=== PATIENT | male | born 1945 | race Hispanic/Latino ===

== ENCOUNTER 2016-10-25 10:46 | Inpatient (IN) | payer OTHER, MEDICARE ==
--- NOTE | 2016-10-25 11:00 | C.PDOC ---
History Of Present Illness 71-year-old male, presents to the emergency department with complaints of dysfunctional german catheter. Patient states he was seen by Dr Rosenberg in office yesterday, where he had an ultrasound that showed "fluid backing up into the kidneys." Patient had a german catheter placed, which was draining well until this morning, patient states "nothing came out, I was milking the bag for urine." Initially patient noted bladder discomfort, that has now resolved. Pt had a fever (T-Max 101) yesterday. No hematuria, nausea/vomiting, or any other associated symptoms. No other complaints at this time Chief Complaint (Nursing): Male Genitourinary History Per: Patient History/Exam Limitations: no limitations Onset/Duration Of Symptoms: Hrs Current Symptoms Are (Timing): Still Present Severity: Moderate Past Medical History Reviewed: Historical Data, Nursing Documentation, Vital Signs Vital Signs: Last Vital Signs Temp 98.3 F 10/27/16 16:00 Pulse 67 10/27/16 16:00 Resp 20 10/27/16 16:00 BP 134/78 10/27/16 16:00 Pulse Ox 99 10/27/16 16:00 Family History: States: Unknown Family Hx Review Of Systems Except As Marked, All Systems Reviewed And Found Negative. Constitutional: Negative for: Fever, Chills Respiratory: Negative for: Shortness of Breath Gastrointestinal: Positive for: Abdominal Pain. Negative for: Nausea, Vomiting Musculoskeletal: Negative for: Back Pain Skin: Negative for: Rash Neurological: Negative for: Weakness, Numbness, Headache, Dizziness Physical Exam - Physical Exam Appears: Non-toxic, No Acute Distress Skin: Warm, Dry, No Rash Head: Atraumatic, Normacephalic Eye(s): bilateral: Normal Inspection, PERRL, EOMI Nose: Normal Oral Mucosa: Moist Lips: Normal Appearing Neck: Normal ROM Cardiovascular: Rhythm Regular Respiratory: Normal Breath Sounds, No Accessory Muscle Use Gastrointestinal/Abdominal: Soft, No Tenderness Male Genital: Other (GERMAN IN PLACE, DRAINING URINE.) Extremity: Normal ROM Neurological/Psych: Oriented x3, Normal Speech ED Course And Treatment - Laboratory Results Result Diagrams: 10/25/16 11:37 10/25/16 11:37 - CT Scan/US A/P Other Rad Studies (CT/US): Radiology Report Reviewed (L SIDED HYDRONEPH; HYDROURETER; NO OBSTRUCT; BLADDER WALL IRREG; BPH) Progress - Data Reviewed Data Reviewed: Lab, Diagnostic imaging, Old records - Continuity of Care Discussed patient case with:: Patient Discussed pt. case with budget consultant/specialty: Urology ED OBSERVATION Date of observation admission: 10/25/16 Time of observation admission: 11:15 - Observation admission statement Patient is being placed in observation because:: URINARY RETENTION; FEVER - Goals of Observation Goals of observation are:: NEG SEPSIS, ACUTE FINDINGS - Progress Note Progress Note: 10/25/16 11:21 D/W DR Aramis ROSENBERG REQUESTS CT AWARE OF ER FINDINGS AND PLAN 10/25/16 14:26 D/W DR ROSENBERG AWARE OF ER FINDINGS WILL ADMIT Disposition Counseled Patient/Family Regarding: Studies Performed, Diagnosis - Disposition Disposition: HOSPITALIZED Disposition Time: 14:27 Condition: STABLE - POA Present On Arrival: None - Clinical Impression Clinical Impression: Hydronephrosis, Hydroureter, Obstructed German catheter, Fever - Scribe Statement The provider has reviewed the documentation as recorded by the Karl Bianchi All medical record entries made by the Karl were at my direction and personally dictated by me. I have reviewed the chart and agree that the record accurately reflects my personal performance of the history, physical exam, medical decision making, and the department course for this patient. I have also personally directed, reviewed, and agree with the discharge instructions and disposition. Decision To Admit - Pt Status Changed To: Hospital Disposition Of: Inpatient - Admit Certification Admit to Inpatient:: After my assessment, the patient will require hospitalization for at least two midnights. This is because of the severity of symptoms shown, intensity of services needed, and/or the medical risk in this patient being treated as an outpatient. - InPatient: Physician Admission Certification: I certify that this patient requires 2 or more midnights of care for the following reason:: SEE NOTE - . Bed Request Type: Regular Admitting Physician: Mikey Rosenberg Patient Diagnosis: Hydronephrosis, Hydroureter, Obstructed German catheter, Fever
[2016-10-25 11:42] LABS: BASO % 0.2 % (0.0-2.0); EOS # 0.1 K/uL (0.0-0.7); EOS % 0.4 % (0.0-4.0); HEMATOCRIT 40.9 % (35.0-51.0); LYMPH # 0.4 K/uL (1.0-4.3); LYMPH % 3.1 % (20.0-40.0); MEAN CELL VOLUME 88.8 fL (80.0-94.0); MEAN CORPUSCULAR HEMOGLOBIN 29.3 pg (27.0-31.0); MEAN PLATELET VOLUME 7.9 fL (7.2-11.7); MONO # 1.2 K/uL (0.0-0.8); PLATELET COUNT 248 K/uL (130-400); RED CELL DISTRIBUTION WIDTH 14.2 % (11.5-14.5); WHITE BLOOD COUNT 13.3 K/uL (4.8-10.8)
[2016-10-25 11:51] LABS: CHLORIDE 96 mmol/L (98-107); SODIUM 136 mmol/L (132-148)
[2016-10-25 11:52] LABS: POTASSIUM 4.3 mmol/L (3.6-5.2)
[2016-10-25 11:54] LABS: GFR AFRICAN-AMERICAN > 60; RBC URINE 867 /hpf (0-3); URINE BACTERIA OCC (<OCC); URINE BILIRUBIN NEGATIVE (NEGATIVE); URINE BLOOD 3+ (NEGATIVE); URINE COLOR Yellow (YELLOW); URINE GLUCOSE (UA) NORMAL (Normal); URINE KETONE NEGATIVE (NEGATIVE); URINE LEUKOCYTE ESTERASE 3+ Leu/uL (Negative); URINE PROTEIN 2+ mg/dL (NEGATIVE); URINE UROBILINOGEN NORMAL mg/dL (0.2-1.0); WBC URINE 118 /hpf (0-5)
[2016-10-25 11:55] LABS: BLOOD UREA NITROGEN 19 mg/dL (9-20); CALCIUM 9.2 mg/dl (8.6-10.4); CARBON DIOXIDE 27 mmol/L (22-30); GLUCOSE,RANDOM 105 mg/dL (75-110)
[2016-10-25 12:35] LABS: EOSINOPHIL 1 % (0-4); NEUTROPHIL 91 % (50-75); TOTAL CELLS COUNTED 100
[2016-10-25 12:37] LABS: VENOUS BLOOD GAS BASE EXCESS 3.3 mmol/L (0.0-2.0); VENOUS BLOOD GAS PCO2 48 mmHg (40-60); VENOUS BLOOD PH 7.39 (7.32-7.43)
--- NOTE | 2016-10-25 13:25 | CT ---
PROCEDURE: CT Abdomen and Pelvis without Oral or IV contrast. HISTORY: URINARY RETENTION, FEVER COMPARISON: None available TECHNIQUE: Contiguous axial images of the abdomen and pelvis. No oral or IV contrast administered. Coronal and Sagittal reformats generated and reviewed. Radiation dose: Total exam DLP = 308.11 mGy-cm. FINDINGS: There is limited evaluation of the solid organs without the administration of IV contrast. Examination limited by paucity of intra-abdominal and intrapelvic fat. LOWER THORAX: No visible consolidation, pleural effusion, or pneumothorax. LIVER: Unremarkable unenhanced appearance. GALLBLADDER AND BILE DUCTS: Haim either decompressed or surgically removed. Surgical clips are not evident. PANCREAS: Unremarkable unenhanced appearance. SPLEEN: Unremarkable unenhanced appearance. ADRENALS: Unremarkable unenhanced appearance. KIDNEYS AND URETERS: Extensive left-sided hydronephrosis and hydroureter. No obstructing calculi evident. No evidence of right-sided hydronephrosis. Severe urinary bladder wall thickening. Air within the urinary bladder with Lomeli catheter present. Dependent 2.8 x 2.1 cm mass within the urinary bladder may reflect debris, neoplasm, or possibly superior aspect of an enlarged prostate gland. BLADDER: See above. REPRODUCTIVE: Enlarged prostate gland measures approximately 4.1 x 5.3 cm. APPENDIX: Not visualized. No secondary signs of acute appendicitis appreciated. BOWEL: The stomach is nondistended. Lack of oral contrast limits evaluation for bowel pathology. The bowel loops appear within normal limits of caliber without evidence of intestinal obstruction. Moderate diffuse constipation. PERITONEUM: No significant free fluid. No definite free air. LYMPH NODES: Suboptimal evaluation for adenopathy due to lack of oral and IV contrast as well as paucity of intra-abdominal and intrapelvic fat. Sub cm nonspecific retroperitoneal and mesenteric lymph nodes identified. VASCULATURE: Atherosclerotic calcifications. No aortic aneurysm. BONES: Degenerative changes. OTHER FINDINGS: None. IMPRESSION: Extensive left-sided hydronephrosis and hydroureter. No evidence of obstructing calculus. Severe urinary bladder wall thickening. Air within the urinary bladder with Lomeli catheter present. Dependent 2.8 x 2.1 cm mass within the urinary bladder may reflect debris, neoplasm, or possibly superior aspect of an enlarged prostate gland. Recommend correlation with urinalysis as well as cystoscopy/ureteroscopy if indicated. Moderate constipation. Additional findings as above.
[2016-10-25] MEDS ORDERED: cefTRIAXone IV 1 gm in Dextros 50 ML IVPB SCH (19:00)
[2016-10-26] MEDS ORDERED: cefTRIAXone IV 1 gm in Dextros 50 ML IVPB SCH ×2 (02:00→19:00)
[2016-10-26] MEDS ORDERED: Magnesium Citrate Oral SOL (300 ml) PO ONE (11:52)
--- NOTE | 2016-10-26 16:08 | NM ---
PROCEDURE: Renal scan and flow study. HISTORY: retention/hydronephrosis COMPARISON: October 25, 2016. CT scan abdomen and pelvis. Summary of findings on the comparison examination: Extensive left-sided hydronephrosis and hydroureter. No evidence of obstructing calculus. Severe urinary bladder wall thickening. Dependent 2.8 x 2.1 cm mass within the urinary bladder. TECHNIQUE: 23.3 mCi technetium 99 M MDP administered intravenously. Examination performed per department protocol. FINDINGS: Right Kidney: Flow component: Normal flow to the right kidney Time to peak: 4.5 minutes Peak to T1/2 Peak: 23 minutes Left Kidney: Flow component: Diminished flow, perfusion to the left kidney compared to the right. Time to peak: 1.5 minutes Peak to T1/2 Peak: 0.0 minutes Split Renal Function: Right kidney 64 % Left kidney 36 % IMPRESSION: 1. Right kidney: Normal flow, function in clearance of radio nuclide. Right kidney to GB is 64% total renal function. 2. Left kidney: Diminished perfusion and function left kidney. An a lytic spot of the current study indicated no obstructive component consistent with findings on recent CT scan. Left kidney contributes 36% overall total renal function.
--- NOTE | 2016-10-26 16:47 | CP.PCM.CON ---
History of Present Illness - History of Present Illness History of Present Illness: 71 yo man with recent onset of dysuria was found to have urinary retention treated initially as out pt but trefused patel came to er in retention and fever started on IV antibiotics cultures so far negative but patient was taking ioral antibiotics CT shows left hydro, hydroureter and bladder thickening will likely need cysto/ retrograde once infection improves FH- + colon ca SH- non smoker currently NKDA Review of Systems - Constitutional Constitutional: Fatigue, Fever - EENT Eyes: absent: As Per HPI, Blind Spots, Blurred Vision, Change in Vision, Decreased Night Vision, Diplopia, Discharge, Dry Eye, Exophthalmos, Floaters, Irritation, Itchy Eyes, Loss of Peripheral Vision, Pain, Photophobia, Requires Corrective Lenses, Sees Flashes, Spots in Vision, Tunnel Vision, Other Visual Disturbances, Loss of Vision, Other Ears: absent: As Per HPI, Decreased Hearing, Ear Discharge, Ear Pain, Tinnitus, Abnormal Hearing, Disequilibrium, Dizziness, Other Nose/Mouth/Throat: absent: As Per HPI, Epistaxis, Nasal Congestion, Nasal Discharge, Nasal Obstruction, Nasal Trauma, Nose Pain, Post Nasal Drip, Sinus Pain, Sinus Pressure, Bleeding Gums, Change in Voice, Dental Pain, Dry Mouth, Dysphagia, Halitosis, Hoarsness, Lip Swelling, Mouth Lesions, Mouth Pain, Odynophagia, Sore Throat, Throat Swelling, Tongue Swelling, Facial Pain, Neck Pain, Neck Mass, Other - Cardiovascular Cardiovascular: absent: As Per HPI, Acrocyanosis, Chest Pain, Chest Pain at Rest , Chest Pain with Activity, Claudication, Diaphoresis, Dyspnea, Dyspnea on Exertion, Edema, Irregular Heart Rhythm, Pain Radiating to Arm/Neck/Jaw, Leg Edema, Leg Ulcers, Lightheadedness, Orthopnea, Palpitations, Paroxysmal Nocturnal Dyspnea, Pedal Edema, Radiating Pain, Rapid Heart Rate, Slow Heart Rate, Syncope, Other - Respiratory Respiratory: absent: As Per HPI, Cough, Dyspnea, Hemoptysis, Dyspnea on Exertion , Wheezing, Snoring, Stridor, Pain on Inspiration, Chest Congestion, Excessive Mucous Production, Change in Mucous Color, Pain with Coughing, Other - Gastrointestinal Gastrointestinal: absent: As Per HPI, Abdominal Pain, Belching, Bloating, Change in Bowel Habits, Change in Stool Character, Coffee Ground Emesis, Constipation, Cramping, Diarrhea, Dyspepsia, Dysphagia, Early Satiety, Excessive Flatus, Fecal Incontinence, Heartburn, Hematemesis, Hematochezia, Loose Stools, Melena, Nausea, Odynophagia, Temesmus, Vomiting, Other - Genitourinary Genitourinary: As Per HPI - Musculoskeletal Musculoskeletal: absent: As Per HPI, Abnormal Gait, Arthralgias, Atrophy, Back Pain, Deformity, Joint Swelling, Limited Range of Motion, Loss of Height, Muscle Cramps, Muscle Weakness, Myalgias, Neck Pain, Numbness, Radiating Pain into Limb, Stiffness, Tingling, Other - Integumentary Integumentary: absent: As Per HPI, Acne, Alopecia, Bleeding Lesions, Change in Hair, Change in Nails, Change in Pigmentation, Changing Lesions, Dry Skin, Erythema, Furuncle, Hirsutism, Lesions, New Lesions, Non-Healing Lesions, Photosensitivity, Pruritus, Rash, Skin Pain, Skin Ulcer, Sores, Striae, Swelling , Unusual Bruising, Wounds, Jaundice, Other - Neurological Neurological: absent: As Per HPI, Abnormal Gait, Abnormal Hearing, Abnormal Movements, Abnormal Speech, Behavioral Changes, Burning Sensations, Confusion, Convulsions, Disequilibrium, Dizziness, Numbness, Focal Weakness, Frequent Falls , Headaches, Lack of Coordination, Loss of Vision, Memory Loss, Paresthesias, Radicular Pain, Restless Legs, Sensory Deficit, Syncope, Tingling, Tremor, Vertigo, Weakness, Other Visual Disturbances, Other - Psychiatric Psychiatric: absent: As Per HPI, Abnormal Sleep Pattern, Anhedonia, Anxiety, Auditory Hallucinations, Behavioral Changes, Change in Appetite, Change in Libido, Confusion, Depression, Difficulty Concentrating, Hallucinations, Homicidal Ideation, Hopelessness, Irritability, Memory Loss, Mood Swings, Panic Attacks, Paranoia, Suicidal Ideation, Visual Hallucinations, Tactile Hallucinations, Other - Endocrine Endocrine: absent: As Per HPI, Change in Body Appearance, Change in Libido, Cold Intolorance, Deepening of Voice, Excessive Sweating, Fatigue, Flushing, Heat Intolorance, Increase in Ring/Shoe/Hat Size, Palpitations, Polydipsia, Polyphagia, Polyuria, Other - Hematologic/Lymphatic Hematologic: absent: As Per HPI, Easy Bleeding, Easy Bruising, Lymphadenopathy, Other Past Patient History - Past Medical History & Family History Past Medical History?: Yes - Past Social History Smoking Status: Never Smoked - MUSCULOSKELETAL/RHEUMATOLOGICAL Hx Falls: No - GENITOURINARY/GYNECOLOGICAL Hx Genitourinary Disorders: Yes Other/Comment: URINARY RETENTION - PSYCHIATRIC Hx Substance Use: No - SURGICAL HISTORY Hx Surgeries: Yes Hx Orthopedic Surgery: Yes (BACK SX) - ANESTHESIA Hx Anesthesia: Yes Hx Anesthesia Reactions: No Meds Allergies/Adverse Reactions: Allergies Allergy/AdvReac Type Severity Reaction Status Date / Time No Known Allergies Allergy Verified 10/25/16 10:54 - Medications Medications: Current Medications Acetaminophen (Tylenol 325mg Tab) 650 mg PO Q6 PRN PRN Reason: fever Last Admin: 10/26/16 16:27 Dose: 650 mg Cefepime HCl 1 gm/ Dextrose 50 mls @ 100 mls/hr IVPB Q12H ANA Last Admin: 10/26/16 14:54 Dose: 100 mls/hr Influenza Virus Vaccine (Afluria) 45 mcg IM .ONCE ONE Stop: 10/27/16 10:01 Pneumococcal Polyvalent Vaccine (Pneumovax 23 Vaccine) 0.5 ml IM .ONCE ONE Stop: 10/27/16 10:01 Physical Exam - Constitutional Appears: Toxic, No Acute Distress, Chronically Ill - Head Exam Head Exam: ATRAUMATIC, NORMAL INSPECTION, NORMOCEPHALIC - Eye Exam Eye Exam: PERRL. absent: Scleral icterus - ENT Exam ENT Exam: Mucous Membranes Dry, Normal External Ear Exam, Normal Oropharynx - Neck Exam Neck exam: Negative for: Lymphadenopathy, Thyromegaly - Respiratory Exam Respiratory Exam: Decreased Breath Sounds, Clear to Auscultation Bilateral - Cardiovascular Exam Cardiovascular Exam: REGULAR RHYTHM, +S1, +S2 - GI/Abdominal Exam GI & Abdominal Exam: Diminished Bowel Sounds, Soft. absent: Hernia, Rebound, Rigid, Tenderness - Rectal Exam Rectal Exam: Deferred - Exam Exam: NORMAL INSPECTION - Extremities Exam Extremities exam: Positive for: pedal pulses present. Negative for: calf tenderness, pedal edema, tenderness - Back Exam Back exam: absent: CVA tenderness (L), CVA tenderness (R), paraspinal tenderness - Neurological Exam Neurological exam: Alert, CN II-XII Intact, Oriented x3, Reflexes Normal - Psychiatric Exam Psychiatric exam: Normal Mood - Skin Skin Exam: Dry, Intact Results - Vital Signs Recent Vital Signs: Last Vital Signs Temp 101.6 F H 10/26/16 16:27 Pulse 66 10/26/16 08:00 Resp 18 10/26/16 08:00 BP 112/58 L 10/26/16 08:00 Pulse Ox 98 10/26/16 08:00 - Labs Result Diagrams: 10/25/16 11:37 10/25/16 11:37 Assessment & Plan (1) Fever Assessment and Plan: eval ongoing cont iv antibiotics Status: Acute (2) Hydronephrosis Status: Acute (3) Hydroureter Status: Acute (4) Obstructed Patel catheter Status: Acute
--- NOTE | 2016-10-26 18:15 | PCM.URO ---
Urology Progress Note - Objective Intake & Output: Intake & Output 10/25/16 10/26/16 10/26/16 18:59 06:59 18:59 Intake Total 480 400 Output Total 1200 Balance -720 400 Intake: Intake, IV Amount 50 Right Forearm 50 Oral 430 400 Output: Urine 1200 Urethral (Lomeli) 1200 Other: Voiding Method Indwelling Catheter Vital Signs: Vital Signs - 24 hr 10/25/16 10/25/16 10/26/16 19:07 20:30 00:48 Temperature 102.9 F H 98.7 F 99.1 F Pulse Rate 85 96 H 82 Respiratory 18 20 20 Rate Blood Pressure 138/85 144/77 145/82 O2 Sat by Pulse 95 95 Oximetry 10/26/16 10/26/16 10/26/16 08:00 16:00 16:27 Temperature 98.1 F 101.8 F H 101.6 F H Pulse Rate 66 70 Respiratory 18 20 Rate Blood Pressure 112/58 L 139/67 O2 Sat by Pulse 98 96 Oximetry 10/26/16 10/26/16 16:57 17:27 Temperature 99.4 F Pulse Rate 66 Respiratory Rate Blood Pressure O2 Sat by Pulse Oximetry
--- NOTE | 2016-10-26 18:56 | PN ---
DATE: 10/26/2016 See the history and physical on 10/25/2016. See the previously dictated notes. On 10/23/2016 I met the patient. We wanted to put a Lomeli in; he said no at that time. We get some labs. See them; they are in the chart. At this point, 10/24/2016, he came back to the office and we inserted a Lomeli catheter. On 10/25/2016 we admitted him to the hospital and I saw the patient now, 10/26/2016. We are discussing further options. The remainder of the exam is otherwise unremarkable, although the patient looks to be in less distres s. He is actually up on the computer. He just ate. DIAGNOSIS: Urinary retention. PLAN: Will monitor the patient closely and then will make some recommendations and plan. Meanwhile, we are going to follow IDs recommendations, and labs are pending, etc. Les Rosenberg MD cc: [id number] TT: 10/26/2016 18:55:51 Confirmation # [id number] Dictation # [id number] mn
--- NOTE | 2016-10-26 19:37 | HP ---
REASON FOR ADMISSION: Gross hematuria. A very pleasant gentleman who presented to me. He is a 71-year-old who presented with retention and when he presented he already had retention and hematuria and left hydronephrosis. He has been seeing in [facility], but after he came to me initially on Saturday, then Sat we inserted a Lomeli catheter. At first he did not want to allow and then he allowed it. This was all on 10/23 and 10/24, returned to insert a Lomeli catheter. The patient is not doing well at home, developed a fever, so we are bringing him in to the hospital 10/25 for emergency admission for antibiotic therapy. Specifically, the patient is having hematuria and he was having fever and a cath eter he says is difficult to assess whether or not he is draining well, then he milks it, but joe goodson, we had put in a small tiny catheter. We put a 12-Arabic in at the patient's request and it show ed 16 and 18, but anyway, he is in the hospital now for further monitoring. PAST MEDICAL AND SURGICAL HISTORY: As listed. REVIEW OF SYSTEMS: As listed. PHYSICAL EXAMINATION: GENERAL: Well-nourished male in no apparent distress. VITAL SIGNS: Within normal limits. LUNGS: Clear. ABDOMEN: Overall soft. LABORATORIES: See chart. The digital rectal exam shows prostate that is greater than 30 grams. DIAGNOSES: Urinary retention, gross hematuria, hydronephrosis. Multiple other issues. The issues on the left kidney, the right kidney, how they are working, what is the plan. For now, we are going to leave the Lomeli. We are going to get an infectious disease consultation to monitor his fever and respond to his white count. His white count is 13,000 as mentioned above. PLAN: Therefore as follows: 1. Lomeli to straight drainage. 2. ID consult. 3. Maintain Lomeli. 4. We will discuss options. 5. Renal scan. Further plans to follow. Les Rosenberg MD cc: [phone] TT: 10/26/2016 19:36:57 rn
[2016-10-27] MEDS ORDERED: Influenza Virus Vaccine 45 mcg/0.5 ml Syr IM ONE (10:00)
[2016-10-27] MEDS ORDERED: Pneumococcal 23-Valent Vaccine IM ONE (10:00)
[2016-10-27] MEDS ORDERED: Cefepime 1 GM in Sodium Chloride 0.9% 100 ML IVPB SCH (16:00)
[2016-10-27] MEDS: Cefepime 1 GM in Sodium Chloride 0.9% 100 ML IVPB SCH (22:00)
[2016-10-28] MEDS: Cefepime 1 GM in Sodium Chloride 0.9% 100 ML IVPB SCH ×3 (06:35→22:07)
--- NOTE | 2016-10-28 15:31 | CP.PCM.PN ---
Subjective - Date & Time of Evaluation Date of Evaluation: 10/28/16 Time of Evaluation: 07:00 - Subjective Subjective: afeb ciultures neg nad Objective - Vital Signs/Intake and Output Vital Signs (last 24 hours): Temp Pulse Resp BP Pulse Ox 98.1 F 55 L 20 127/76 96 10/28/16 08:52 10/28/16 11:23 10/28/16 08:52 10/28/16 08:52 10/28/16 08:52 Intake and Output: 10/28/16 10/28/16 06:59 18:59 Intake Total 650 500 Output Total 1700 Balance -1050 500 - Medications Medications: Current Medications Acetaminophen (Tylenol 325mg Tab) 650 mg PO Q6 PRN PRN Reason: fever Last Admin: 10/27/16 00:08 Dose: 650 mg Cefepime HCl 1 gm/ Sodium (Chloride) 100 mls @ 100 mls/hr IVPB Q8H ANA Last Admin: 10/28/16 14:37 Dose: 100 mls/hr - Constitutional Appears: Non-toxic, Chronically Ill - Head Exam Head Exam: NORMOCEPHALIC - Eye Exam Eye Exam: absent: Scleral icterus - Neck Exam Neck Exam: absent: Lymphadenopathy - Respiratory Exam Respiratory Exam: Decreased Breath Sounds, Clear to Ausculation Bilateral - Cardiovascular Exam Cardiovascular Exam: REGULAR RHYTHM - GI/Abdominal Exam GI & Abdominal Exam: Distended, Soft Assessment and Plan (1) Fever Status: Acute (2) Hydronephrosis Status: Acute (3) Hydroureter Status: Acute (4) Obstructed Lomeli catheter Status: Acute
[2016-10-29] MEDS: Cefepime 1 GM in Sodium Chloride 0.9% 100 ML IVPB SCH ×3 (06:48→22:41)
[2016-10-29 07:52] LABS: INR 1.1
--- NOTE | 2016-10-29 11:33 | US ---
HISTORY: urinary retention COMPARISON: 10/26/2016 renal scan and flow study. 10/25/2016 CT abdomen. Summary of findings on the comparison examination: Left-sided hydronephrosis in ureter. No evidence obstructing calculus. TECHNIQUE: Sonographic evaluation of the retroperitoneum. FINDINGS: RIGHT KIDNEY:: Measures 6.2 x 11.3cm. Normal echogenicity. No calculus, mass, or hydronephrosis. LEFT KIDNEY:: Measures 7.3 x 12.6cm. Mild left hydronephrosis improved compared to the prior CT scan 10/25/2016.. Incidental finding(s): Midpole 62.6 x 1.9 cm. AORTA:: No aneurysmal dilatation. IVC:: Unremarkable. BLADDER:: Decompressed urinary bladder with an indwelling Lomeli catheter. Thickening of the bladder wall maximum thickness 2.5 cm.. OTHER FINDINGS: None . IMPRESSION: Mild, improved unilateral left hydronephrosis. Decompressed urinary bladder with bladder wall thickening suspicious for tumor.
[2016-10-29 15:50] LABS: CHLORIDE 96 mmol/L (98-107); POTASSIUM 4.6 mmol/L (3.6-5.2); SODIUM 139 mmol/L (132-148)
[2016-10-29 15:53] LABS: CARBON DIOXIDE 31 mmol/L (22-30); GFR AFRICAN-AMERICAN > 60
[2016-10-29 15:54] LABS: BLOOD UREA NITROGEN 17 mg/dL (9-20); CALCIUM 8.3 mg/dl (8.6-10.4); GLUCOSE,RANDOM 93 mg/dL (75-110)
[2016-10-29] MEDS ORDERED: Iohexol 240 (50 ml) ONE (17:11)
[2016-10-29] MEDS ORDERED: Lactated Ringer's 1,000 ML IV ONE (17:15)
[2016-10-29] MEDS ORDERED: Propofol 10 mg/ml Inj (20 ML) ONE (17:16)
[2016-10-29] MEDS ORDERED: Midazolam 2 MG/2 ML VIAL ONE (17:16)
[2016-10-29] MEDS ORDERED: HYDROmorphone 0.5 mg/0.5 ml ISec IVP PRN (17:43)
[2016-10-30] MEDS: Cefepime 1 GM in Sodium Chloride 0.9% 100 ML IVPB SCH ×3 (06:26→22:07)
[2016-10-30 08:28] VITALS: RESP 20
--- NOTE | 2016-10-30 11:36 | RAD ---
HISTORY: LEFT HYDRONEPHROSIS/ HEMATURIA COMPARISON: No prior. FINDINGS: BOWEL: Constipation without fecal impaction or obstruction. BONES: Normal. OTHER FINDINGS: None. IMPRESSION: No significant or acute findings to account for/ related to the clinical presentation.
--- NOTE | 2016-10-30 11:51 | RAD ---
PROCEDURE: Fluoroscopy up to 1 hr. HISTORY: HEMATURIA/LEFT HYDRONEPHROSIS COMPARISON: None TECHNIQUE: Standard protocol for this study/examination. FINDINGS: Total fluoroscopic time (continuous mode) utilized during the procedure: 103.6 seconds. IMPRESSION: Less than 1 hr fluoroscopic time utilized during performance of the procedure.
--- NOTE | 2016-10-30 12:17 | CP.PCM.PN ---
Subjective - Date & Time of Evaluation Date of Evaluation: 10/30/16 Time of Evaluation: 09:00 - Subjective Subjective: s\/p stent placement left ureter cultures are neg possible d/c home on po rx for 14 days Objective - Vital Signs/Intake and Output Vital Signs (last 24 hours): Temp Pulse Resp BP Pulse Ox 98.4 F 64 20 144/83 97 10/30/16 08:27 10/30/16 08:27 10/30/16 08:27 10/30/16 08:27 10/30/16 08:27 Intake and Output: 10/30/16 10/30/16 06:59 18:59 Intake Total 550 Output Total 1900 Balance -1350 - Medications Medications: Current Medications Acetaminophen (Tylenol 325mg Tab) 650 mg PO Q6 PRN PRN Reason: fever Last Admin: 10/27/16 00:08 Dose: 650 mg Cefepime HCl 1 gm/ Sodium (Chloride) 100 mls @ 100 mls/hr IVPB Q8H ANA Last Admin: 10/30/16 06:26 Dose: 100 mls/hr - Labs Labs: 10/29/16 15:27 PT 12.7 SECONDS (9.7-12.2) H 10/29/16 07:35 INR 1.1 10/29/16 07:35 APTT 31 SECONDS (21-34) 10/29/16 07:35 - Constitutional Appears: Non-toxic, Chronically Ill - Head Exam Head Exam: NORMOCEPHALIC - Eye Exam Eye Exam: absent: Scleral icterus - ENT Exam ENT Exam: Mucous Membranes Dry - Neck Exam Neck Exam: absent: Lymphadenopathy - Respiratory Exam Respiratory Exam: Decreased Breath Sounds, Clear to Ausculation Bilateral - Cardiovascular Exam Cardiovascular Exam: REGULAR RHYTHM - GI/Abdominal Exam GI & Abdominal Exam: Distended, Soft - Back Exam Back Exam: absent: CVA tenderness (L), CVA tenderness (R) - Neurological Exam Neurological Exam: Alert, Awake, Oriented x3 Assessment and Plan (1) Fever Status: Acute (2) Hydronephrosis Status: Acute (3) Hydroureter Status: Acute (4) Obstructed Lomeli catheter Status: Acute
[2016-10-31] MEDS: Cefepime 1 GM in Sodium Chloride 0.9% 100 ML IVPB SCH ×2 (06:33→14:27)
[2016-10-31 07:56] VITALS: BP 131/74; PULSE 62; TEMP 98.1; O2SAT 97
[2016-10-31 08:38] LABS: BASO # 0.1 K/uL (0.0-0.2); BASO % 0.6 % (0.0-2.0); EOS # 0.2 K/uL (0.0-0.7); EOS % 1.9 % (0.0-4.0); LYMPH # 2.1 K/uL (1.0-4.3); LYMPH % 18.6 % (20.0-40.0); MEAN CELL VOLUME 88.4 fL (80.0-94.0); MEAN CORPUSCULAR HGB CONC 32.8 g/dL (33.0-37.0); MEAN PLATELET VOLUME 7.1 fL (7.2-11.7); MONO # 1.2 K/uL (0.0-0.8); MONO % 11.1 % (0.0-10.0); RED CELL DISTRIBUTION WIDTH 13.7 % (11.5-14.5); WHITE BLOOD COUNT 11.2 K/uL (4.8-10.8)
[2016-10-31 08:51] LABS: CHLORIDE 94 mmol/L (98-107); SODIUM 138 mmol/L (132-148)
[2016-10-31 08:52] LABS: POTASSIUM 4.9 mmol/L (3.6-5.2)
[2016-10-31 08:54] LABS: CARBON DIOXIDE 31 mmol/L (22-30); GFR AFRICAN-AMERICAN > 60
[2016-10-31 08:55] LABS: BLOOD UREA NITROGEN 16 mg/dL (9-20); CALCIUM 8.9 mg/dl (8.6-10.4); GLUCOSE,RANDOM 99 mg/dL (75-110)
--- NOTE | 2016-10-31 16:41 | US ---
PROCEDURE: Ultrasound of the Kidneys HISTORY: urinary retention COMPARISON: None available. TECHNIQUE: Sonogram of the kidneys. FINDINGS: RIGHT KIDNEY: Measures: 12.3 cm. Normal in size, contour and echogenicity. No stone, solid mass lesion or hydronephrosis visualized. LEFT KIDNEY: Measures: 11.9 cm. Normal in size, contour and echogenicity. No stone or solid mass lesion. There is mild hydronephrosis PICC There is a 2.1 x 2.1 x 1.6 cm cyst in the interpolar region. OTHER FINDINGS: There is a Lomeli catheter in the urinary bladder with subsequent decompression. IMPRESSION: 1. Mild left hydronephrosis. No nephrolithiasis. 2. No right hydronephrosis or nephrolithiasis.
[2016-10-31] MEDS ORDERED: Cefepime IV 1 gm in Dextrose 50 ML IVPB SCH (23:00)
--- NOTE | 2016-11-08 13:32 | PN ---
DATE: 10/28/2016 This is a urology progress note. See the admission history and physical, see the daily notes. The patient was initially admitted over night 10/24, 10/25, and then 10/26. Today is 10/28/2016. The patient has an indwelling Lomeli catheter. He has some very good questions. See plans listed bel ow. He is currently resting comfortably in his bed, at bedside. PAST MEDICAL AND SURGICAL HISTORY: No changes. PHYSICAL EXAMINATION: GENERAL: No change. ABDOMEN: Relatively soft. Lomeli catheter is in place. DIAGNOSES: Urinary retention, voiding dysfunction, azotemia, renal failure, hydronephrosis. PLAN: As follows: Going to plan for a cystoscopy for tomorrow. I discussed with the patient risks, benefits and alternatives. I discussed going home, discussed other options. Further plans to follow. Les Rosenberg MD cc: [id number] TT: 11/08/2016 13:32:08 Confirmation # [id number] Dictation # [id number] tn
--- NOTE | 2016-11-08 14:31 | OP ---
PROCEDURE DATE: 10/29/2016 See the previously dictated admission history and physical, progress notes and the like, and my notes as well. PREOPERATIVE DIAGNOSES: Urinary retention, voiding dysfunction, gross hematuria, hydronephrosis, az otemia. POSTOPERATIVE DIAGNOSES: Urinary retention, voiding dysfunction, gross hematuria, hydronephrosis, az otemia. PROCEDURES: Cystoscopy, bilateral retrograde pyelograms. BLOOD LOSS: Less than 25 mL. COMPLICATIONS: None. FINDINGS: 1. Normal anterior urethra, no strictures. 2. From the veru on in is a visually occlusive large long prostate, about 3 cm or more in length, wi th a mild intravesical component. The ureteral orifices are identified. The bladder itself, the mucosa is somewhat erythematous. This is probably secondary to the catheter that is in place, but there are no bladder tumors identified. The ureteral orifices identified. Retrograde pyelograms performed. There is some difficulty and reed its with the study for the retrogrades, but again that was not the main purpose. The films are submitted for the radiologist to read, but basically in the right lower ureter around t he iliac vessels the contrast does not go up well right at that point, although there is contrast in the kidney subsequently. On the left side, there is significant left hydronephrosis even at this po int. (I did not want to pursue this further. I was mostly there evaluate the prostate. See the below lis paty addendum and plan.) INDICATIONS: See history and physical and the progress notes. This is a gentleman who came to me. He had been going to Dr. Main, a [facility] urologist, who I believe is the functional architect of the [employer]. The patient describes that he has a large bladder (that is what Dr. Main apparently told him). Dr. Main had several recommendations that the patient did not follow. The patient initially came to me this past week, on 10/23/2016. At that time, we evaluated the patient. He called and came in as an emergency for basically urinary frequency, urgency and incontinence whe re he could not control his urination. At that time, when we saw him we evaluated him. See the labs from the chart. At that time, we did a pelvic ultrasound and a renal ultrasound. He had hydronephr osis and he had urinary retention. I recommended at that time immediate insertion of Lomeli catheter. He refused that time. Subsequently, that night, on 10/23/2016, he called me that he wanted the catheter put in immediately. We offered him different options including going to the ER. However, he waited till the next day, 10/24/2016. I met him in my office, especially early to insert a Lomeli catheter. At the time of the presentation to my office, I started inserting a 16-Luxembourger Lomeli catheter. The patient then said th at would be too big for him. I explained to him different sized catheters. I gave him a clear set of instructions but, at his req uest, I placed a 12-Luxembourger Lomeli catheter (against my better advice and judgment). The patient subse quently then called me at night that he was having difficulty with the catheter, that there was some blood in the catheter. I knew I had gotten the catheter in well, but I had explained to him even bef ore I put the catheter in that sometimes people will have blood later and the catheter will not drain well with a 12-Luxembourger. But either way, at that time we recommended the patient come to the ER where he has been here since that point. We had discussed various options with the patient including going home with the catheter once the uri ne had relatively cleared up. However, the patient prefers to stay in the hospital for various reaso ns. We had been testing his kidneys, his ultrasound, BUN and creatinine, etc., monitoring him closel y. Now here for the above listed procedure. DESCRIPTION OF PROCEDURE: After obtaining informed consent, the patient placed on the table, routine monitors placed, timeouts were called to confirm the patient and positioning. Lomeli catheter that was in place had been removed. We introduced the cystoscope via the urethra. The anterior urethra is normal, no strictures. Just t o mention, he has a normal male phallus without abnormalities appreciated. Cystoscope via the urethra, no strictures identified. From the veru on in, it is extremely visually occlusive. He has trilobar hypertrophy with a moderate intravesical component. Ureteral orifices though are able to be identified. I do not see any bladder tumors. The bladder it self is erythematous and is extremely trabeculated. It is a very heavily trabeculated bladder. The ureter orifice was identified. Retrograde pyelograms are performed as best as possible. There i s contrast injected on both sides. We did fluoroscopy imaging and hard copy imaging. Retrograde studies are somewhat limited in this case as it was just difficult to get better studies, but mostly I was there to evaluate for any bladder tumors and also to see what the patient meant when he was describing this "large bladder," (I believe that he meant that he has a nonfunctioning bladd er). But either way, at this point, we did retrogrades. I do not see any bladder cancers, just relatively occlusive prostate with an abnormal bladder. At this point, we inserted a Lomeli catheter via the urethra. A 16-Luxembourger is used. Again, the patient was very concerned with the size of the catheter, but I do believe he will do bett er with a bigger catheter. At that point, a rectal exam was performed showing a 50 gram prostate or more. (Also, please see the chart for the CAT scan and ultrasound for the prostate volume more specifically that is better than the rectal exam.) At this point, Lomeli catheter was put to straight drainage. The patient tolerated the procedure well without complications. Les Rosenberg MD cc: [id number] TT: 11/08/2016 14:30:27 tn
--- NOTE | 2016-11-12 08:07 | OP ---
PROCEDURE DATE: 10/29/2016 ADDENDUM I am reviewing my records. What I had noted previously was we did a cystoscopy, retrograde. It was done for urinary retention and left-sided hydronephrosis. At that time, reviewing my records now and I am looking at the note to myself on insertion of a doubl e-J stent. Looking at the fluoroscopic films which are available to me now, I note the presence of l eft hydro with a very tortuous ureter; multiple images by biplanar fluoroscopy. The report from the radiologist's reading just notes the presence of fluoroscopic imaging and does not comment on any ins ertion of double-J stent, does not comment on the wires. But I am looking now, with a tortuous urete r, I was able to eventually untwist some of the ureter and I have an image with a ureteral catheter i n place with a wire up to the kidney with still a lot of tortuosity. But I do not have the final peyman m that demonstrates a double-J stent in place or final confirmation in this regard. PLAN: After reviewing these records, my plan is as follows. I will reach out to the patient and fuentes e sure that he has followup. He is planning to see another urologist who is in network for most of h is care. We had admitted the patient as an emergency. I have discussed with the patient plans. But I will make certain he knows that somebody needs to reevaluate, do plain films and see if there are any stents in place and then remove them. Also needs further imaging. I do, after reviewing all the records, want to mention that we have an ultrasound afterwards. The pr ocedure date was 10/29/2016, and at that time I remember it being difficult. We did a cysto, retrogr ryan as noted in my previous note for heavily trabeculated bladder with significantly abnormal mucosa with a tortuous ureter. But after reviewing the records on 10/29/2016, it looks like I eventually had an open-ended stent int o the renal pelvis with a wire, but I do not recall putting a double-J stent in. In fact, I specific ally recall discussing with the patient that we were not able to get one in well. Just need to confi rm that by imaging. I will mention that subsequently, after the 10/29/2016 procedure, I have an ultr asound from [facility] which I am reviewing now. The report is just normal contours to the kidn ey and no hydro is noted. The date on ultrasound is 10/31/2016. We will discuss further plans with the patient. Les Rosenberg MD cc: [id number] TT: 11/12/2016 08:05:49 mn
--- NOTE | 2016-11-16 06:43 | DS ---
See the admission history and physical, see the operative reports, and daily progress notes. DISCHARGE DIAGNOSIS: Urinary retention, voiding dysfunction, azotemia and hydronephrosis. HISTORY: The patient was admitted as an emergency with severe pain, bleeding and hematuria, urinary retention. In summary, he is a gentleman who has been to other urologists, in addition to me. He has voiding dysfunction. He initially presented to me with retention on last Saturday but would no t allow Lomeli catheter insertion. Then on Saturday night he called me and said he wants the Lomeli cat heter inserted. We made arrangements for when came to the office, I came early to the office to see him to insert a F oley catheter. He would only allow a small catheter to be inserted. That was Saturday. Subsequently, Saturday the patient had come to the Emergency Room because of bleeding. We then discussed various options. We imaged the patient, etc. Subsequently, we observed the patient in the hospital. At this point, he is discharged home in stable condition, but still needing further workup. MEDICATIONS: The outpatient plan to discuss with the patient is my recommendation is to consider surgical interven tion. I also discussed with the patient other options that are available to him, including learning CIC, including getting second opinions, including returning back to [facility] to Dr. Main. After discussing, the patient will weigh his options and most likely will be seen back in the office. At the time of discharge, he is stable. The retention issue and voiding dysfunction is not completely resolved yet. Regarding his hydronephrosis and upper tract imaging he needs close followup and supervision. I explained this to the patient in great detail that he will need further followup. Les Rosenberg MD cc: [id number] TT: 11/16/2016 06:42:11 miguel
== END 2016-10-31 18:20 | disposition home or self-care (01) | DRG 699 ==
LOC: C.ER 10:46 → C.9OBSV 11:15 → OBSVTOIN 14:28 → C.9E 14:28 → C.3T 18:00
PROVIDERS: ADMIT Urology; ATTEND Urology
PROC: 0T9B80Z Drainage of Bladder with Drainage Device, Via Natural or Artificial Opening Endoscopic (ICD-10-PCS; 2016-10-29)
PROC: BT1BYZZ Fluoroscopy of Bladder and Urethra using Other Contrast (ICD-10-PCS; principal; 2016-10-29 15:00)
DX: T83.83XA Hemorrhage due to genitourinary prosthetic devices, implants and grafts, initial encounter (principal); R33.8 Other retention of urine; N13.39 Other hydronephrosis; N19 Unspecified kidney failure; R31.0 Gross hematuria; R50.9 Fever, unspecified; N32.89 Other specified disorders of bladder; N40.1 Benign prostatic hyperplasia with lower urinary tract symptoms